=== PATIENT | female | born 1970 | race Caucasian/White ===

== ENCOUNTER 2021-11-12 10:20 | Outpatient (CLI) | payer BC, SELFPAY ==
--- NOTE | 2021-11-12 11:30 | NEURO_ITS ---
Impression: # Complains of numbness of hands. # Left Carpal Tunnel Syndrome. # Evolving right Carpal Tunnel Syndrome. # No ulnar neuropathy. # Normal needle/EMG exam. Nerve Conduction Studies Anti Sensory Summary Table Stim Site NR Peak (ms) P-T Amp (?V) Site1 Site2 Delta-P (ms) Dist (cm) Ricardo (m/s) Left Median Anti Sensory (2-3nd Digit) Wrist 3.3 34.9 Wrist 2-3nd Digit 3.3 14.0 42 Wrist 3.3 18.6 Wrist 2-3nd Digit 3.3 14.0 42 Right Median Anti Sensory (2-3nd Digit) Wrist 3.3 32.4 Wrist 2-3nd Digit 3.3 14.0 42 Wrist 3.5 7.3 Wrist 2-3nd Digit 3.3 14.0 42 Left Radial Anti Sensory (Base 1st Digit) Wrist 1.5 34.4 Wrist Base 1st Digit 1.5 0.0 Right Radial Anti Sensory (Base 1st Digit) Wrist 2.0 18.9 Wrist Base 1st Digit 2.0 0.0 Left Ulnar Anti Sensory (5th Digit) Wrist 2.3 55.8 Wrist 5th Digit 2.3 14.0 61 Right Ulnar Anti Sensory (5th Digit) Wrist 1.9 43.2 Wrist 5th Digit 1.9 14.0 74 Motor Summary Table Stim Site NR Onset (ms) O-P Amp (mV) Site1 Site2 Delta-0 (ms) Dist (cm) Ricardo (m/s) Left Median Motor (Abd Poll Brev) Wrist 4.1 1.8 Elbow Wrist 4.6 26.0 57 Elbow 8.7 1.9 Right Median Motor (Abd Poll Brev) Wrist 3.1 2.7 Elbow Wrist 4.9 27.0 55 Elbow 8.0 2.7 Left Ulnar Motor (Abd Dig Minimi) Wrist 2.3 8.1 A Elbow Wrist 5.0 28.0 56 A Elbow 7.3 5.8 Right Ulnar Motor (Abd Dig Minimi) Wrist 2.3 6.5 A Elbow Wrist 5.3 29.0 55 A Elbow 7.6 4.8 F Wave Studies NR F-Lat (ms) L-R F-Lat (ms) Left Median (Mrkrs) (Abd Poll Brev) 26.17 0.88 Right Median (Mrkrs) (Abd Poll Brev) 27.04 0.88 Left Ulnar (Mrkrs) (Abd Dig Min) 26.80 0.25 Right Ulnar (Mrkrs) (Abd Dig Min) 26.55 0.25 EMG Side Muscle Nerve Root Ins Act Fibs Amp Dur Recrt Comment Right 1stDorInt Ulnar C8-T1 Nml Nml Nml Nml Nml Right Ext Indicis Radial (Post Int) C7-8 Nml Nml Nml Nml Nml Right Ext Digitorum Radial (Post Int) C7-8 Nml Nml Nml Nml Nml Right BrachioRad Radial C5-6 Nml Nml Nml Nml Nml Right PronatorTeres Median C6-7 Nml Nml Nml Nml Nml Right Abd Poll Brev Median C8-T1 Nml Nml Nml Nml Nml Left 1stDorInt Ulnar C8-T1 Nml Nml Nml Nml Nml Left Ext Indicis Radial (Post Int) C7-8 Nml Nml Nml Nml Nml Left Ext Digitorum Radial (Post Int) C7-8 Nml Nml Nml Nml Nml Left BrachioRad Radial C5-6 Nml Nml Nml Nml Nml Left PronatorTeres Median C6-7 Nml Nml Nml Nml Nml Left Abd Poll Brev Median C8-T1 Nml Nml Nml Nml Nml MTDD
== END 2021-11-12 10:21 | disposition home or self-care (01) ==
PROVIDERS: PCP Internal Medicine; Visit Provider Internal Medicine
DX: G56.03 Carpal tunnel syndrome, bilateral upper limbs (principal)
CPT/HCPCS: 95886; 95911

== ENCOUNTER → 2022-01-13 01:29 | Outpatient (CLI) | payer BC, SELFPAY ==
[2022-01-13 12:54] LABS: SARS-CoV-2 RNA PCR Negative
== END ==
PROVIDERS: PCP Internal Medicine; Visit Provider Plastic Surgery
DX: Z01.812 Encounter for preprocedural laboratory examination (principal); Z20.822 Contact with and (suspected) exposure to COVID-19
CPT/HCPCS: C9803; U0003; U0005

== ENCOUNTER 2022-01-16 00:08 | Day surgery (SDC) | payer BC, SELFPAY ==
[2022-01-08 19:12] VITALS: BMI 28.2
--- NOTE | 2022-01-08 19:16 | SUR.PREOP ---
Report to the Outpatient Waiting Room, entrance under the green pavilion located off [facility], at time _0800 on date 01/16/22 . OR Time: _0900 . - You and your visitor will be asked a series of questions to screen for COVID 19 for your protection. - A mask is required within the hospital. Preoperative COVID Testing Requirements: No COVID Test needed if: (proof is required; if not received patient will have Rapid Test prior to entry) - Patient has received COVID Vaccine at least 14 days prior to procedure date or - Patient has positive COVID test result within last 90 days of surgery date. COVID Test needed if above criteria is not met If not COVID vaccinated a COVID test must be conducted within 72 hours of surgery and patient is asked to isolate self from time of testing until procedure. You will go to the [facility] for your COVID testing. The [facility] is located at the corner of [address] [facility]. You will only be called if COVID results are positive and your surgeon may reschedule your elective surgery date. Patients may have clear liquids (water, carbonated beverages, clear teas, apple juice) until 3 hours prior to surgery with a maximum of 20 ounces. - No food from midnight until time of surgery - Infants may have breast milk until 4 hours before surgery, infant formula 6 hours prior to surgery. - Children will be allowed to drink immediately following surgery. If applicable, please bring a bottle or sippy cup to assist with drinking. Juice, water, soda, and popsicles are readily available. For infants on formula, please bring formula the day of surgery. Pacifiers are allowed. Take the following medications with a SIP of water the morning of surgery: __home medications Medications to discontinue per physician ____n/a Date to take last dose Please no make-up, nail nicaraguan, hairspray, perfume, deodorant, or body powder the day of surgery. No jewelry (including any body piercings) or valuables the day of surgery, leave them at home. Please take a shower or bath the night before, or the morning of, surgery with an antibacterial soap. Wear comfortable, loose fitting clothing. Children are encouraged to wear pajamas. - Jewelry must be removed prior to entering the operating room. Rings and piercings that are not removed may be cut off. - The hospital will not accept responsibility for valuables. - Please leave all valuables, including medications, at home the day of surgery. If you are going home after surgery, a licensed dray driver must drive you home. - NO public transportation without another adult. - We recommend that an adult stay with you for 24 hours following discharge. - We also recommend that you do not drive, make important decision, drink alcoholic beverages, or take any drugs that were not prescribed by your health care provider for at least 24 hours after your discharge time. For Pediatric surgeries, we recommend two adults accompany the child home (only one inside the building at this time). One visitor will be allowed to accompany the patient into the hospital. Patients visitor will be instructed to remain with patient at all times or leave the building. We will allow the visitor to come back to the postoperative area when patient is ready. Follow any additional instructions given to you from your surgeon. Telephone instructions given to _oz barnett and asked if any additional questions and then verbalized understanding. Patient advised to call surgeon office or pre surgery nurse liaison [phone] if any additional questions.
--- NOTE | 2022-01-16 07:13 | WPDHPUPDATE1 ---
History and Physical Update Update Date/Time: 01/16/22 07:13 History and Physical has been reviewed, including an updated exam of the patient. There are NO changes in the patient's condition. Risks, benefits, and alternatives have been discussed and questions answered. Patient agrees to proceed with procedure.
[2022-01-16 10:11] VITALS: BP 156/89; PULSE 79; RESP 16; TEMP 36.4; O2SAT 100
[2022-01-16 10:51] VITALS: BP 136/69; PULSE 59
[2022-01-16 11:18] VITALS: BP 139/72; PULSE 64; RESP 18; O2SAT 99
[2022-01-16 11:28] VITALS: BP 150/75; PULSE 62; RESP 16; O2SAT 97
[2022-01-16 11:38] VITALS: BP 166/85; PULSE 67; RESP 18; O2SAT 97
[2022-01-16] MEDS: LIDO 1%/EPINEPHRINE/PF 1:200,000 30 ML VIAL XX (11:40)
[2022-01-16 11:48] VITALS: BP 163/82; PULSE 65; RESP 18; O2SAT 97
--- NOTE | 2022-01-16 11:58 | P.OP_ITS ---
Procedure Note - Detailed Date of Procedure 01/16/22 Pre-op Diagnosis right carpal tunnel syndrome Post-op Diagnosis Same Procedure Performed Right open carpal tunnel release Surgeon Steve eWn MD Anesthesia Local Description of Procedure The right volar wrist was marked as the patient waited in holding area. She was then taken to the operating room and placed supine on the operating table. A time-out was held confirmed. Extremity was prepped and draped in usual fashion. The site was locally infiltrated with 1% lidocaine with epinephrine. The tourniquet was inflated and set at 250 mmHg.. The incision was made marked dissection was carried bluntly through the subcutaneous tissue to the palmar a poneurosis. This was incised with a 15 blade exposing the transverse retinaculum. This was also incised with a 15 blade opening the canal. Under 3 point retraction the ligament was divided distally and proximally to completely release it. There was no unusual anatomy noted. The skin was closed with interrupted 5 0 nylon suture the usual bandage applied. She is discharge instructions wound care and follow-up and a prescription for hydrocodone 5/325 6. Drains No Packing No Pathology None sent Complications No immediate complications Condition Stable Disposition Same day
== END 2022-01-16 12:10 | disposition home or self-care (01) ==
PROVIDERS: PCP Internal Medicine; Visit Provider Plastic Surgery
PROC: (CPT 64721; principal; 2022-01-16 11:00)
DX: G56.01 Carpal tunnel syndrome, right upper limb (principal); I10 Essential (primary) hypertension
CPT/HCPCS: 64721; A9270

== ENCOUNTER 2022-02-20 00:43 | Day surgery (SDC) | payer BC, SELFPAY ==
[2022-02-04 09:00] VITALS: BMI 28.2
--- NOTE | 2022-02-04 09:07 | PC.NURSE ---
Report to the Outpatient Waiting Room, entrance under the green pavilion located off [facility], at time _1300_ on date _02-06-22_. OR Time: __1400_. - You and your visitor will be asked a series of questions to screen for COVID 19 for your protection. - Only one visitor is allowed at this time. - The patient visitor is requested to leave or wait in car when not with patient. - A mask is required within the hospital. No dietary restrictions. Light lunch. Take the following medications with a SIP of water the morning of surgery: Take medications as usual. Medications to discontinue per physician Date to take last dose Please no make-up, nail honduran, hairspray, perfume, deodorant, or body powder the day of surgery. No jewelry (including any body piercings) or valuables the day of surgery, leave them at home. Please take a shower or bath the night before, or the morning of, surgery with an antibacterial soap. Wear comfortable, loose fitting clothing. Children are encouraged to wear pajamas. - Jewelry must be removed prior to entering the operating room. Rings and piercings that are not removed may be cut off. - The hospital will not accept responsibility for valuables. - Please leave all valuables, including medications, at home the day of surgery. You are allowed to drive. Follow any additional instructions given to you from your surgeon. If you or anyone in your household have experienced Covid symptoms in the past week, please notify your surgeon or the nurse liaison at the phone number below for possible testing. Telephone instructions given to ____Patient and asked if any additional questions and then verbalized understanding. Patient advised to call surgeon office or pre surgery nurse liaison [phone] if any additional questions.
--- NOTE | 2022-02-06 07:16 | WPDHPUPDATE1 ---
History and Physical Update Update Date/Time: 02/06/22 07:16 History and Physical has been reviewed, including an updated exam of the patient. There are NO changes in the patient's condition. Risks, benefits, and alternatives have been discussed and questions answered. Patient agrees to proceed with procedure.
--- NOTE | 2022-02-20 07:19 | WPDHPUPDATE1 ---
History and Physical Update Update Date/Time: 02/20/22 07:19 History and Physical has been reviewed, including an updated exam of the patient. There are NO changes in the patient's condition. Risks, benefits, and alternatives have been discussed and questions answered. Patient agrees to proceed with procedure.
[2022-02-20 09:52] VITALS: BP 167/87; PULSE 75; RESP 16; TEMP 36.3; O2SAT 100
[2022-02-20 10:44] VITALS: BP 147/85; PULSE 64; RESP 16; O2SAT 98
[2022-02-20 10:54] VITALS: BP 148/88; PULSE 64; RESP 16; O2SAT 98
[2022-02-20] MEDS: LIDO 1%/EPINEPHRINE/PF 1:200,000 30 ML VIAL 10 ML XX (10:55)
[2022-02-20 11:05] VITALS: BP 135/80; PULSE 67; RESP 16; O2SAT 98
[2022-02-20 11:12] VITALS: BP 148/90; PULSE 69; RESP 14; O2SAT 99
--- NOTE | 2022-02-20 11:43 | W.PM.PROC2 ---
Procedure Note - Detailed Date of Procedure 02/20/22 Pre-op Diagnosis left carpal tunnel syndrome Post-op Diagnosis Same Procedure Performed Left open carpal tunnel release Surgeon Steve Wen MD Anesthesia Local Description of Procedure The right carpal canal region was marked on the patient's hand in holding area. She was taken to the operating room she was placed supine on the operating table. A time-out was held and confirmed. The extremity was prepped and draped in usual fashion. Tourniquet was applied but not used. The operative site was infiltrated with 1% lidocaine with epinephrine. Incision was made in the palm and carried bluntly through the subcutaneous tissue to the palmar aponeurosis. This and the transverse retinaculum were incised with a 15. Blade opening the canal. Under 3 point retraction the retinaculum was incised distally and proximally for complete release. There was no unusual anatomy noted. The skin was closed with interrupted 5 0 nylon suture. The usual bandage was applied with Renato wrap. Patient is discharged home from the operating room in stable condition he has a prescription for hydrocodone 5/325 6. Estimated Blood Loss 3 Tourniquet Time 0 Drains No Pathology None sent Complications No immediate complications Condition Stable Disposition Same day
== END 2022-02-20 11:45 | disposition home or self-care (01) ==
PROVIDERS: PCP Internal Medicine; Visit Provider Plastic Surgery
PROC: (CPT 64721; principal; 2022-02-20 11:15)
DX: G56.02 Carpal tunnel syndrome, left upper limb (principal); I10 Essential (primary) hypertension; F17.200 Nicotine dependence, unspecified, uncomplicated
CPT/HCPCS: 64721; A9270